=== PATIENT | female | born 2000 | race Caucasian/White ===

== ENCOUNTER 2022-09-23 14:27 | Outpatient (CLI) | payer OTHER | END 2022-09-23 14:28 | disposition home or self-care (01) | LOC: BICCT 14:27 | PROVIDERS: ATTEND Physician Assistant Medical | DX: R10.9 Unspecified abdominal pain (principal) | CPT/HCPCS: 74176 ==

== ENCOUNTER 2023-07-15 06:21 | Emergency (ER) | payer BC, OTHER ==
[2023-07-15] MEDS ORDERED: EPINEPHrine 1 MG/ML VIAL ONE (06:24)
[2023-07-15] MEDS ORDERED: diphenhydrAMINE 50 MG/ML VIAL ONE (06:24)
[2023-07-15] MEDS ORDERED: methylPREDNISolone Sod Succ/PF 125 MG/2 ML VIAL ONE (06:25)
[2023-07-15] MEDS ORDERED: Famotidine/PF 20 mg/2ml Vial ONE (06:25)
[2023-07-15] MEDS ORDERED: Ondansetron PF 4 MG/2 ML Vial ONE (06:29)
== END 2023-07-15 10:03 | disposition home or self-care (01) ==
LOC: ERS 06:21
DX: T78.40XA Allergy, unspecified, initial encounter (principal)
CPT/HCPCS: 96361; 96374; 96375; J0171; J1200; J2405; J2930; S0028

== ENCOUNTER 2023-10-08 10:47 | Emergency (ER) | payer BC ==
[2023-10-08] MEDS ORDERED: diphenhydrAMINE 50 MG/ML VIAL ONE (11:08)
[2023-10-08] MEDS ORDERED: methylPREDNISolone Sod Succ/PF 125 MG/2 ML VIAL ONE (11:08)
[2023-10-08] MEDS ORDERED: EPINEPHrine 1 MG/ML VIAL ONE (11:08)
[2023-10-08] MEDS ORDERED: Famotidine/PF 20 mg/2ml Vial ONE (11:09)
== END 2023-10-08 14:16 | disposition home or self-care (01) ==
LOC: ERS 10:47
DX: T78.2XXA Anaphylactic shock, unspecified, initial encounter (principal)
CPT/HCPCS: 96372; 96374; 96375; J0171; J1200; J2930; S0028